=== PATIENT | female | born 1980 | race Caucasian/White ===

== ENCOUNTER 2021-04-21 13:16 | Outpatient (CLI) | payer BC, MEDICAID, SELFPAY ==
--- NOTE | 2021-04-21 13:30 | USCV_ITS ---
Rosalia Avelar Age: 41 Gender: F : 1980 Exam Date: 04/21/2021 13:55 Ordering Phys: Geraldo Segovia M.D ([email or web address]) Technologist: Rene Crespo Exam Location: [facility] [place] Indication: SOB BP: 136 / 80 HR: 62 Rhythm: Sinus Technical Quality: Adequate MEASUREMENTS (Male / Female) Normal Values 2D ECHO LV Diastolic Diameter PLAX 4.7 cm 4.2 - 5.9 / 3.9 - 5.3 cm LV Systolic Diameter PLAX 3.0 cm IVS Diastolic Thickness 0.6 cm 0.6 - 1.0 / 0.6 - 0.9 cm IVS Systolic Thickness 0.9 cm LVPW Diastolic Thickness 1.1 cm 0.6 - 1.0 / 0.6 - 0.9 cm LVPW Systolic Thickness 1.7 cm LVOT Diameter 2.0 cm LV Ejection Fraction 2D Teich 65.7 % LV Ejection Fraction MOD 2C 57.5 % LV Ejection Fraction 2C AL 56.2 % LA Diameter 3.1 cm LA Width 3.9 cm LA Height 4.7 cm RA Width 4.4 cm RA Height 5.0 cm Aorta at Sinotubular Diameter 2.2 cm DOPPLER AV Peak Velocity 147.0 cm/s LVOT Peak Velocity 111.0 cm/s AV Area Cont Eq vti 2.0 cm squared AV Area Cont Eq pk 2.3 cm squared MV Area PHT 4.5 cm squared Mitral E to A Ratio 0.9 MV E' Velocity 37.0 cm/s Mitral E to MV E' Ratio 4.9 Mitral E to LV E' Lateral Ratio 3.9 Mitral E to LV E' Septal Ratio 6.6 TR Peak Velocity 255.1 cm/s TR Peak Gradient 26.0 mmHg TR Mean Velocity 173.9 cm/s TR Mean Gradient 12.8 mmHg TR Velocity Time Integral 61.6 cm PV Peak Velocity 74.0 cm/s RV Acceleration Time 0.2 s RV Ejection Time 0.3 s RV AcT/ET 0.6 FINDINGS Left Ventricle Normal left ventricular size. LV systolic function is normal with EF of 55-60%. No regional wall motion abnormalities. Normal diastolic filling pattern. Right Ventricle The right ventricle is normal in size and function. Right Atrium The right atrium is normal in size. Left Atrium The left atrium is normal in size. Mitral Valve Structurally normal mitral valve without significant stenosis or prolapse. There is mild mitral regurgitation. Aortic Valve Structurally normal aortic valve without significant sclerosis or stenosis. There is trace aortic regurgitation. Tricuspid Valve Structurally normal tricuspid valve without significant stenosis. Mild tricuspid regurgitation. Insufficient TR jet to calculate RVSP Pulmonic Valve Structurally normal pulmonic valve without significant stenosis. There is mild pulmonic regurgitation. Pericardium Normal pericardium without effusion. Aorta Normal ascending aorta dimension. CONCLUSIONS LV systolic function is normal with EF of 55-60% Diatsolic function is normal Mild mitral regurgitation Trace aortic regurgitation Mild tricuspid regurgitation Mild pulmonic regurgitation No comparion studies are available Geraldo Segovia MD (Electronically Signed) Final Date: 26 April 2021 10:30 S
== END 2021-04-21 13:17 | disposition home or self-care (01) ==
LOC: US 13:17
PROVIDERS: PCP Family Medicine; Visit Provider Internal Medicine
DX: R06.02 Shortness of breath (principal); I08.3 Combined rheumatic disorders of mitral, aortic and tricuspid valves
CPT/HCPCS: 93306

== ENCOUNTER → 2021-05-04 15:25 | Outpatient (BNVA) | payer BC, MEDICAID, SELFPAY | PROVIDERS: PCP Family Medicine; Visit Provider Internal Medicine | DX: I50.9 Heart failure, unspecified (principal) | CPT/HCPCS: 80048; 83880 ==

== ENCOUNTER 2022-02-02 19:48 | Emergency (ER) | payer BC, MEDICAID, SELFPAY ==
[2022-02-02 19:59] VITALS: BP 122/78; PULSE 67; RESP 18; TEMP 36.5; O2SAT 97; BMI 20.9
--- NOTE | 2022-02-02 20:15 | XRR_ITS ---
PROCEDURE INFORMATION: Exam: XR Chest Exam date and time: 02/02/2022 8:33 PM Age: 41 years old Clinical indication: Shortness of breath; Additional info: SOB TECHNIQUE: Imaging protocol: Radiologic exam of the chest. Views: 1 view. COMPARISON: No relevant prior studies available. FINDINGS: Lungs: Unremarkable. No consolidation. Pleural spaces: Unremarkable. No pleural effusion. No pneumothorax. Heart/Mediastinum: Unremarkable. No cardiomegaly. Bones/joints: Unremarkable. XR/XR chest 1V portable [id number] IMPRESSION: No acute findings.
--- NOTE | 2022-02-02 20:17 | W.ED.SOB ---
HPI - SOB/Dyspnea General: Chief Complaint: Shortness of Breath/Dyspnea Stated Complaint: sob, heart racing Time Seen by Provider: 02/02/22 20:09 Source: patient Mode of arrival: ambulatory Limitations: no limitations History of Present Illness: HPI Narrative: Patient is a 41-year-old female has been having some shortness of breath since this morning. States that its actually improved since seem to be worse with some exertion she denies any fever denies any vomiting or diarrhea denies any chest pain. She has no leg swelling. No cough no fever. Associated symptoms: Deny abdominal pain, chest pain, fever(s), nausea or vomiting Review of Systems Const: Denies: fever(s), chills, body aches or change in appetite Eyes: Denies: blurry vision or eye discomfort ENMT: Denies: throat pain or dental pain Card: Denies: chest pain Resp: Reports: dyspnea GI: Denies: abdominal pain, nausea, vomiting or diarrhea : Denies: dysuria Musc: Denies: neck pain or back pain Skin/Breast: Denies: rash Neuro: Denies: headache(s) Psych: Denies: depression Dario/Lymph: Denies: easy bruising All/Imm: Denies: urticaria PFSH ED PFSH: Surgical History H/O dilation and curettage H/O neck surgery H/O: hysterectomy History of carpal tunnel surgery History of removal of ovarian cyst Hx of tonsillectomy Family History Grandmother Pacemaker Mother Murmur, cardiac Social History Smoking and tobacco status: current every day smoker Alcohol intake: never Physical Exam Const: COMMON NORMALS: no acute distress, patient oriented x3 and healthy appearing HENMT: COMMON NORMALS: normocephalic and atraumatic HEAD & SCALP: normocephalic and atraumatic Eye: COMMON NORMALS: Equal, round and reactive pupils present and EOMs intact bilaterally PUPIL: Yes Equal, round and reactive pupils present Neck/C-Spine: COMMON NORMALS: full ROM and supple Chest: COMMONS NORMALS: normal inspection of the chest and normal palpation of entire chest wall Resp: COMMON NORMALS: normal respiratory effort, No retractions, No use of accessory muscles and clear to auscultation bilaterally AUSCULTATION: clear to auscultation bilaterally Cardio: COMMON NORMALS: regular rate, regular rhythm and No murmurs present (Cardio) RATE: regular rate RHYTHM: regular rhythm GI: COMMON NORMALS: Normal to inspection, nondistended, normoactive bowel sounds present, Soft to palpation, non-tender and no masses PALPATION: Yes Soft to palpation Extremity: COMMON NORMALS: normal to inspection and full ROM Neuro: COMMON NORMALS: patient oriented x3, moves all extremities and no focal motor deficits Psych: COMMON NORMALS: mental status grossly normal, Normal thought process present and cooperative THOUGHT PROCESS: Normal thought process present Skin: COMMON NORMALS: no rashes or lesions noted and no wounds GENERAL SKIN EXAM: no rashes or lesions noted Course Vital Signs: Vital signs: Vital Signs Temperature 97.7 F 02/02/22 19:59 Pulse Rate 76 02/02/22 20:33 Respiratory Rate 16 02/02/22 20:33 Blood Pressure 110/67 02/02/22 20:33 Pulse Oximetry 96 02/02/22 20:33 Oxygen Delivery Me thod 02/02/22 20:33 MDM - SOB/Dyspnea Medical Decision Making Patient presents here with shortness of breath her blood work here is all normal besides some mild hypokalemia. Patient has a negative D-dimer no signs of cardiac cause no pneumonia she stable for discharge she is to follow-up with PCP and return if worsening. Lab Data : 02/02/22 20:26 02/02/22 20:26 Labs/Radiology: Radiology Impressions Chest X-Ray 02/02/22 20:15 IMPRESSION: No acute findings. Laboratory Results WBC 7.9 10^3/uL (4.0-10.0) 02/02/22 20:26 RBC 3.31 10^6/uL (4.1-5.3) L 02/02/22 20:26 Hgb 11.8 g/dL (11.5-15.3) 02/02/22 20:26 Hct 34.3 % (37.0-47.0) L 02/02/22 20:26 MCV 103.6 fl (81-99) H 02/02/22 20:26 MCH 35.6 pg (28.0-34.0) H 02/02/22 20: MCHC 34.4 g/dL (30.0-36.0) 02/02/22: RDW 12.7 % (12.1-15.1) 02/02/22 20: Plt Count 202 10^3/cmm (130-400) 02/02/22 20: MPV 12.2 fL (7.4-10.4) H 02/02/22 20: Neut % (Auto) 65.0 % 02/02/22: Lymph % (Auto) 29.0 % 02/02/22: [place] % (Auto) 4.3 % 02/02/22: Eos % (Auto) 0.6 % 02/02/22: Baso % (Auto) 0.8 % 02/02/22: Neut # (Auto) 5.10 10^3/uL (1.8-7.7) 02/02/22: Lymph # (Auto) 2.3 10^3/uL (0.8-4.8) 02/02/22: [place] # (Auto) 0.3 10^3/uL (0.2-0.9) 02/02/22: Eos # (Auto) 0.1 10^3/uL (0.0-0.8) 02/02/22: Baso # (Auto) 0.1 10^3/uL (0.0-0.1) 02/02/22: Nucleated RBC % (auto) 0 % 02/02/22: Nucleated RBCs # 0.0 /100WBC 02/02/22: PT 14.20 SECONDS (12.1-14.9) 02/02/22: INR 1.06 (0.8-1.2) 02/02/22: D-Dimer 0.31 ug/mIFEU (0-0.59) 02/02/22 20: Sodium 136 mmol/L (136-145) 02/02/22 20: Potassium 2.8 mmol/L (3.5-5.1) L* 02/02/22:26 Chloride 102 mmol/L (98-107) 02/02/22 20:26 Carbon Dioxide 22 mmol/L (22-29) 02/02/22 20:26 Anion Gap 14.8 (5-19) 02/02/22 20:26 BUN 5 mg/dL (6-20) L 02/02/22 20:26 Creatinine 0.7 mg/dL (0.5-0.9) 02/02/22 20:26 GFR Calculation 92.7 mL/min (90-130) 02/02/22 20:26 Glucose 111 mg/dL (65-115) 02/02/22 20:26 Calculated Osmolality 280 mOsm/kg (285-295) L 02/02/22 20:26 Calcium 8.9 mg/dL (8.5-10.5) 02/02/22 20:26 Total Bilirubin 0.4 mg/dL (0.15-1.2) 02/02/22 20:26 AST 10 U/L (0-32) 02/02/22 20:26 ALT < 5 U/L (0-33) 02/02/22 20:26 Alkaline Phosphatase 70 U/L (35-105) 02/02/22 20:26 Troponin T Baseline 6 ng/L (0-10) 02/02/22 20:26 NT-Pro-B Natriuret Pep 301 pg/mL (0-125) H 02/02/22 20:26 Total Protein 7.0 g/dL (6.6-8.7) 02/02/22 20:26 Albumin 4.5 g/dL (3.5-5.2) 02/02/22 20:26 Globulin 2.5 g/dL (1.3-4.6) 02/02/22 20:26 EKG Data EKG 1: I personally reviewed and interpreted this EKG as follows: EKG Interpretation Date: 02/02/22 EKG interpretation time: 20:23 Interpretation: nsr hr [address] or t wave abnormalities qrs 90 [id number] Discharge Plan Discharge Patient Disposition: Home Clinical Impression: Shortness of breath, Hypokalemia Condition: Stable Prescriptions: No Action docosanol [Abreva] 10 % cream topical ibuprofen [IBU] 800 mg tablet 800 mg PO TID methylprednisolone [Medrol] 4 mg tablet 4 mg PO DAILY albuterol sulfate [ProAir HFA] 90 mcg/actuation HFA aerosol inhaler 2 puff inhalation Q6H PRN diclofenac sodium 1 % gel 2 g topical QID Rx Instructions: apply to single elbow, wrist or hand; for hand includes palm/fingers/back of hand alprazolam [Xanax] 1 mg tablet 1 mg PO BID PRN buprenorphine-naloxone [Suboxone] 2-0.5 mg film 1 film buccal TID Rx Instructions: place 1 strip/tab under (each) side of tongue omeprazole 20 mg capsule,delayed release(DR/EC) 20 mg PO DAILY bumetanide 2 mg tablet 2 mg PO DAILY Discharge Orders: Discharge ED (Routine); Ordered 02/02/22 Ordered By: Harrison Garcia Referrals: Jewel Oneil MD [Primary Care Provider] - 1-3 days Discharge Diet: Advance as tolerated Discharge Activity: Resume usual activity Patient Instructions: Hypokalemia (ED) Coding Level of Care Code ED Television Installer Helper for Chg Fwd Exam Comprehensive
[2022-02-02 20:33] VITALS: BP 110/67; PULSE 76; RESP 16; O2SAT 96
[2022-02-02 20:33] LABS: Basophils # 0.1 10^3/uL (0.0-0.1); Basophils % 0.8 %; Eosinophils # 0.1 10^3/uL (0.0-0.8); Eosinophils % 0.6 %; Hematocrit 34.3 % (37.0-47.0); Hemoglobin 11.8 g/dL (11.5-15.3); Lymphocytes # 2.3 10^3/uL (0.8-4.8); Mean Corpuscular HGB Conc 34.4 g/dL (30.0-36.0); Mean Corpuscular Hemoglobin 35.6 pg (28.0-34.0); Mean Corpuscular Volume 103.6 fl (81-99); Mean Platelet Volume 12.2 fL (7.4-10.4); Monocytes # 0.3 10^3/uL (0.2-0.9); Monocytes % 4.3 %; Nucleated Red Blood Cells % 0 %; Platelet Count 202 10^3/cmm (130-400); Red Blood Count 3.31 10^6/uL (4.1-5.3); Red Cell Distribution Width 12.7 % (12.1-15.1); White Blood Count 7.9 10^3/uL (4.0-10.0)
[2022-02-02 20:45] LABS: INR 1.06 (0.8-1.2)
[2022-02-02 20:48] LABS: D Dimer 0.31 ug/mIFEU (0-0.59)
[2022-02-02 21:00] LABS: Troponin(5th) Baseline 6 ng/L (0-10)
[2022-02-02 21:08] LABS: Alanine Aminotransferase < 5 U/L (0-33); Albumin Level 4.5 g/dL (3.5-5.2); Alkaline Phosphatase 70 U/L (35-105); Anion Gap 14.8 (5-19); Aspartate Amino Transferase 10 U/L (0-32); Blood Urea Nitrogen 5 mg/dL (6-20); Calcium 8.9 mg/dL (8.5-10.5); Carbon Dioxide 22 mmol/L (22-29); Chloride 102 mmol/L (98-107); Globulin 2.5 g/dL (1.3-4.6); Glomerular Filtration Rate 92.7 mL/min (90-130); Glucose 111 mg/dL (65-115); NT Pro B Type Natriuretic Pept 301 pg/mL (0-125); Osmolality Calculated 280 mOsm/kg (285-295); Sodium 136 mmol/L (136-145); Total Bilirubin 0.4 mg/dL (0.15-1.2)
[2022-02-02 21:23] LABS: Potassium 2.8 mmol/L (3.5-5.1)
[2022-02-02] MEDS: potassium chloride ER 20 mEq Tablet 40 MEQ PO (21:39)
[2022-02-02 22:03] VITALS: BP 106/73; PULSE 80; RESP 15
[2022-02-02 22:10] VITALS: BP 106/73; PULSE 80; RESP 15
== END 2022-02-02 22:11 | disposition home or self-care (01) ==
PROVIDERS: Emergency Provider Emergency Medicine; PCP Family Medicine
DX: R06.02 Shortness of breath (principal); E87.6 Hypokalemia; F17.210 Nicotine dependence, cigarettes, uncomplicated
CPT/HCPCS: 71045; 80053; 83880; 84484; 85025; 85378; 85610; 99285

== ENCOUNTER → 2024-04-18 15:46 | Outpatient (BNVA) | payer BC, MEDICAID, SELFPAY | PROVIDERS: PCP Family Medicine; Visit Provider Obstetrics & Gynecology | DX: Z01.419 Encounter for gynecological examination (general) (routine) without abnormal findings (principal) | CPT/HCPCS: 87624 ==

== ENCOUNTER → 2024-06-17 08:31 | Outpatient (BNVA) | payer BC, MEDICAID, SELFPAY | PROVIDERS: PCP Family Medicine; Visit Provider Obstetrics & Gynecology | DX: N83.292 Other ovarian cyst, left side (principal); Z98.890 Other specified postprocedural states | CPT/HCPCS: 76830 ==

== ENCOUNTER 2025-01-16 14:12 | Emergency (ER) | payer OTHER, BC, MEDICAID, SELFPAY ==
[2025-01-16] VITALS (7 sets, daily range): BP systolic 95–108; BP diastolic 57–78; PULSE 63–95; RESP 14–19; TEMP 36.7; O2SAT 93–98; BMI 19.7
--- OUTSIDE RECORDS SUMMARY | 2025-01-16 14:24 | XMS_ITS | Clinical Summary ---
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 Immunizations Immunization Administration Dates Next Due Influenza Seasonal Unspecified Formulation IM Rubella Vaccine SQ 01/11/2006,12/26/2002 Family History Medical History Relation Name Comments Breast Cancer Neg Hx Ovarian Cancer Neg Hx Social History Tobacco Use Types Packs/Day Years Used Date Smoking Tobacco: Every Day Cigarettes Smokeless Tobacco: Never Comments:Quit smoking: I'm quitting Has cut use from 1 PPD to < 1/2 PPD Alcohol Use Standard Drinks/Week Comments No 0 (1 standard drink = 0.6 oz pur e alcohol) Comments Unknown Sex and Gender Information Value Date Recorded Sex Assigned at Not on file Legal Sex Female 9:26 PM CDT Gender Identity Not on file Sexual Orientation Not on file Last Filed Vital Signs Vital Sign Reading Time Taken Comments Blood Pressure 126/62 03/03/2021 6:38 PM CDT Pulse 60 03/03/2021 6:38 PM CDT Temperature 36.8 C (98.3 F) 03/03/2021 6:38 PM CDT Respiratory Rate 14 03/03/2021 6:38 PM CDT Oxygen Saturation 100% 03/03/2021 6:38 PM CDT Inhaled Oxygen Concentration - - Weight 68 kg (150 lb) 03/03/2021 6:38 PM CDT Height 170.2 cm (5' 7 ) 03/30/2017 1:44 PM CDT Body Mass Index 23.49 03/30/2017 1:44 PM CDT Plan of Treatment Health Maintenance Due Date Last Done Comments HPV VACCINES (1 - 3-dose series) 1996 DTAP/TDAP/TD VACCINES (1 - Tdap) 2000 HEPATITIS B VACCINES (1 of 3 - 19+ 3-dose series) 2000 HPV/Cotest (21-29) 2002 CERVICAL CANCER SCREENING 2011 HPV/Cotest (30-65) 2011 PAP SMEAR 2011 BREAST CANCER SCREENING 2021 03/30/2017, 03/30 INFLUENZA VACCINE (#1) 2025 06/15/2007 Procedures Procedure Name Priority Date/Time Associated Diagnosis Comments MAMMO DIAGNOSTIC BILATERAL W OR WO CAD Routine 03/30/2017 10:32 AM CDT Lump or mass in breast from Last 3 Months or Most Recently Relevant to Health Maintenance Results * MAMMO DIAGNOSTIC BILATERAL W OR WO CAD (03/30/2017 10:32 AM CDT) Anatomical Region Laterality Modality Breast Bilateral Other Impressions 03/30/2017 3:18 PM CDT : Mammogram appears unremarkable as noted. Special attention was paid to the upper outer quadrant on each side, the location of historical palpable abnormalities noted by her physician at recent clinical breast examination. These areas appear unremarkable on mammogram and show dense fibrocystic tissue suggested on ultrasound, and therefore will have to be correlated clinically. From an imaging standpoint, I would recommend routine age-specific screening mammograms beginning at age 40. The patient was given a result/recommendation letter. [id number] Narrative 03/30/2017 3:18 PM CDT Bilateral Digital Diagnostic Mammogram And Bilateral Breast Ultrasound: Initial mammogram on this 36-year-old female is presented, therefore there are no previous for comparison. She presents with history of palpable lumps upper outer on each side, noted by her physician. Patient gives history that she has not noticed any palpable abnormalities. We have office notes and diagram from her physician visit. Breast tissue is dense and asymmetrical. No area of suspicion on either side is seen, with special attention to the upper outer quadrants. Ultrasound was performed of the upper outer aspects of each breast, because of the history of palpable abnormalities there noted by her physician. The 2 sides appear symmetrical and essentially identical. There is dense tissue and suggested fibrocystic changes bilaterally. No mass is seen, solid or cystic. This digital mammogram was also analyzed by the Computer Aided Detection System (CAD), R2 ImageChecker, Version 8.3. Procedure Note Phu King MD - 07/29/2021 Bilateral Digital Diagnostic Mammogram And Bilateral Breast Ultrasound: Initial mammogram on this 36-year-old female is presented, therefore there are no previous for comparison. She presents with history of palpable lumps upper outer on each side, noted by her physician. Patient gives history that she has not noticed any palpable abnormalities. We have office notes and diagram from her physician visit. Breast tissue is dense and asymmetrical. No area of suspicion on either side is seen, with special attention to the upper outer quadrants. Ultrasound was performed of the upper outer aspects of each breast, because of the history of palpable abnormalities there noted by her physician. The 2 sides appear symmetrical and essentially identical. There is dense tissue and suggested fibrocystic changes bilaterally. No mass is seen, solid or cystic. This digital mammogram was also analyzed by the Computer Aided Detection System (CAD), R2 ImageChecker, Version 8.3. IMPRESSION : Mammogram appears unremarkable as noted. Special attention was paid to the upper outer quadrant on each side, the location of historical palpable abnormalities noted by her physician at recent clinical breast examination. These areas appear unremarkable on mammogram and show dense fibrocystic tissue suggested on ultrasound, and therefore will have to be correlated clinically. From an imaging standpoint, I would recommend routine age-specific screening mammograms beginning at age 40. The patient was given a result/recommendation letter. [id number] us Anish Simms MD MAMMO ORDERABLES Final Result from Last 3 Months or Most Recently Relevant to Health Maintenance Insurance [facility] MEDICAID Care Teams Newspaper Inserter Relationship Specialty Start Date End Date Jamila Powell FNP [address] [place] [id number] PCP - General NURSE PRACTITIONER 06/25/13
[2025-01-16 15:29] LABS: Hematocrit 31.4 % (36-47); Hemoglobin 10.70 g/dL (11.27-16.99); Mean Corpuscular HGB Conc 34.1 g/dL (30-55); Mean Corpuscular Hemoglobin 36.9 pg (27-33); Mean Corpuscular Volume 108.3 fl (85-98); Nucleated Red Blood Cells % 0 %; Platelet Count 234 10^3/cmm (157-399); Red Blood Count 2.90 10^6/uL (3.85-5.65); White Blood Count 6.12 10^3/uL (3.29-11.43)
[2025-01-16 15:50] LABS: Alanine Aminotransferase 6 U/L (0-33); Albumin Level 4.1 g/dL (3.5-5.2); Alkaline Phosphatase 82 U/L (35-105); Anion Gap 14.6 (5-19); Aspartate Amino Transferase 14 U/L (0-32); Blood Urea Nitrogen 9 mg/dL (6-20); Calcium 8.2 mg/dL (8.5-10.5); Carbon Dioxide 20 mmol/L (22-29); Chloride 109 mmol/L (98-107); Creatinine Clr Calc Pharmacy 82.6149; Globulin 2.7 g/dL (1.3-4.6); Glucose 111 mg/dL (65-115); Lipase 28 U/L (13-60); Osmolality Calculated 289 mOsm/kg (285-295); Potassium 3.6 mmol/L (3.5-5.1); Sodium 140 mmol/L (136-145); Total Protein 6.8 g/dL (6.6-8.7)
[2025-01-16 16:07] LABS: Slide Review Slide Review Perform
--- NOTE | 2025-01-16 17:33 | W.ED.GENADLT ---
Documented by User: Winston Iverson DO 01/21/25 14:05 HPI - General Adult General: Chief complaint: Nausea/Vomiting/Diarrhea Stated complaint: Low BP double vison N/V SOB Dizzy Time Seen by Provider: 01/16/25 17:09 History of Present Illness: 44-year-old female who presents to the emergency room with complaints of episodes of orthostasis she states she has low blood pressure and she is up and active she is short of breath and dizzy at times. She has had systolic blood pressures while at work in the 80s and 70s. Patient is on ibuprofen on. She has had 2 or 3 episodes of emesis today. This been going on for approximately 1 week. No head trauma no falls. Patient reports she has a history of congestive heart failure however she is has an ejection fraction of 55 to 60% according to the only echocardiogram on the chart which was done in April 2021. Normal valvular structure. Associated symptoms: Reports dyspnea; Deny chest pain or rash Related Data Home Medications ?Medication ?Instructions ?Recorded ?Confirmed alprazolam 1 mg tablet (Xanax) 1 mg PO BID PRN 03/23/21 07/12/24 buprenorphine 2 mg-naloxone 0.5 mg 1 film buccal TID 03/23/21 07/12/24 sublingual film (Suboxone) docosanol 10 % topical cream applic topical 03/23/21 07/12/24 (Abreva) ibuprofen 800 mg tablet (IBU) 800 mg PO TID 03/23/21 07/12/24 omeprazole 20 mg capsule,delayed 20 mg PO DAILY 03/23/21 07/12/24 release Previous Rx's ?Medication ?Instructions ?Recorded albuterol sulfate 90 mcg/actuation 2 puff inhalation Q6H PRN wheezing 08/25/23 aerosol inhaler (ProAir HFA) #8.5 grams benzonatate 100 mg capsule 100 mg PO TID PRN cough #30 caps 07/12/24 levofloxacin 750 mg tablet 750 mg PO DAILY #7 tabs 07/12/24 Allergies Allergy/AdvReac Type Severity Reaction Status Date / Time azithromycin Allergy Unknown Unknown Verified 01/16/25 14:18 morphine Allergy Unknown Unknown Verified 01/16/25 14:18 prednisone Allergy Unknown Unknown Verified 01/16/25 14:18 tramadol Allergy Unknown Unknown Verified 01/16/25 14:18 Review of Systems Const: Denies: fever(s) or chills Card: Denies: chest pain Resp: Reports: dyspnea GI: Denies: abdominal pain : Denies: dysuria, urinary frequency or urinary urgency Musc: Denies: neck pain or back pain Skin/Breast: Denies: rash PFSH ED PFSH: Surgical History Hx of tonsillectomy H/O dilation and curettage H/O neck surgery H/O: hysterectomy History of removal of ovarian cyst History of carpal tunnel surgery Family History Grandmother Postsurgical cardiac pacemaker in situ Mother Murmur, cardiac Ovarian cancer Father Heart disease Denies family history of Colon cancer Diabetes Breast cancer Hypertension Uterine cancer Thyroid disease Stroke Social History Smoking and tobacco/nicotine status: current every day tobacco/nicotine user (.5 ppd) Alcohol intake: never Substance/Drug Use: never Physical Exam Const: COMMON NORMALS: no acute distress GENERAL APPEARANCE: cooperative and comfortable ORIENTATION/CONSCIOUSNESS: Yes awake, Yes oriented to person, Yes oriented to place and Yes oriented to time HENMT: COMMON NORMALS: normocephalic, atraumatic and hearing grossly normal bilaterally HEAD & SCALP: normocephalic and atraumatic Resp: COMMON NORMALS: normal respiratory effort, No retractions, No use of accessory muscles and clear to auscultation bilaterally AUSCULTATION: clear to auscultation bilaterally Cardio: COMMON NORMALS: regular rate, regular rhythm and No murmurs present (Cardio) RATE: regular rate RHYTHM: regular rhythm GI: COMMON NORMALS: Soft to palpation and No hepatosplenomegaly present AUSCULTATION: Yes normoactive bowel sounds PALPATION: Yes Soft to palpation, No Tenderness to palpation present (GI), No Guarding due to palpation present (GI) and Yes No hepatosplenomegaly present Extremity: COMMON NORMALS: normal to inspection, capillary refill normal, no clubbing, cyanosis or edema, no calf tenderness and no pedal edema Neuro: SENSORIUM/ORIENTATION: Yes oriented to person, Yes oriented to place and Yes oriented to time Skin: COMMON NORMALS: no rashes or lesions noted GENERAL SKIN EXAM: no rashes or lesions noted Course Vital Signs: Vital signs: Vital Signs Temperature 98.0 F 01/16/25 14:16 Pulse Rate 66 01/16/25 22:09 Respiratory Rate 15 01/16/25 22:09 Blood Pressure 107/64 01/16/25 22:09 Pulse Oximetry 96 01/16/25 22:09 Oxygen Delivery Me thod Room Air 01/16/25 20:00 MDM - General Adult Medical Decision Making Care signed out to Dr. Sandoval at change of shift. See final notes for diagnosis and disposition. Lab Data 01/16/25 15:05 01/16/25 15:05 Laboratory Results WBC 6.12 10^3/uL (3.29-11.43) 01/16/25 15:05 RBC 2.90 10^6/uL (3.85-5.65) L 01/16/25 15:05 Hgb 10.70 g/dL (11.27-16.99) L 01/16/25 15:05 Hct 31.4 % (36-47) L 01/16/25 15:05 MCV 108.3 fl (85-98) H 01/16/25 15:05 MCH 36.9 pg (27-33) H 01/16/25 15:05 MCHC 34.1 g/dL (30-55) 01/16/25 15:05 RDW 17.2 % (12.1-15.1) H 01/16/25 15:05 Plt Count 234 10^3/cmm (157-399) 01/16/25 15:05 MPV 11.2 fL (7.4-10.4) H 01/16/25 15:05 Neut % (Auto) 54.7 % 01/16/25 15:05 Lymph % (Auto) 35.6 % 01/16/25 15:05 [place] % (Auto) 5.9 % 01/16/25 15:05 Eos % (Auto) 2.5 % 01/16/25 15:05 Baso % (Auto) 1.1 % 01/16/25 15:05 Neut # (Auto) 3.35 10^3/uL (1.8-7.7) 01/16/25 15:05 Lymph # (Auto) 2.2 10^3/uL (0.8-4.8) 01/16/25 15:05 [place] # (Auto) 0.4 10^3/uL (0.2-0.9) 01/16/25 15:05 Eos # (Auto) 0.2 10^3/uL (0.0-0.8) 01/16/25 15:05 Baso # (Auto) 0.1 10^3/uL (0.0-0.1) 01/16/25 15:05 Nucleated RBC % (auto) 0 % 01/16/25 15:05 Nucleated RBCs # 0.0 /100WBC 01/16/25 15:05 Sodium 140 mmol/L (136-145) 01/16/25 15:05 Potassium 3.6 mmol/L (3.5-5.1) 01/16/25 15:05 Chloride 109 mmol/L (98-107) H 01/16/25 15:05 Carbon Dioxide 20 mmol/L (22-29) L 01/16/25 15:05 Anion Gap 14.6 (5-19) 01/16/25 15:05 BUN 9 mg/dL (6-20) 01/16/25 15:05 Creatinine 0.8 mg/dL (0.5-0.9) 01/16/25 15:05 GFR Calculation 78.3 mL/min (90-130) L 01/16/25 15:05 Glucose 111 mg/dL (65-115) 01/16/25 15:05 Calculated Osmolality 289 mOsm/kg (285-295) 01/16/25 15:05 Calcium 8.2 mg/dL (8.5-10.5) L 01/16/25 15:05 Total Bilirubin 0.2 mg/dL (0.15-1.2) 01/16/25 15:05 AST 14 U/L (0-32) 01/16/25 15:05 ALT 6 U/L (0-33) 01/16/25 15:05 Alkaline Phosphatase 82 U/L (35-105) 01/16/25 15:05 Troponin T Baseline < 6 ng/L (0-10) 01/16/25 19:58 NT-Pro-B Natriuret Pep 102 pg/mL (0-125) 01/16/25 15:15 Total Protein 6.8 g/dL (6.6-8.7) 01/16/25 15:05 Albumin 4.1 g/dL (3.5-5.2) 01/16/25 15:05 Globulin 2.7 g/dL (1.3-4.6) 01/16/25 15:05 Lipase 28 U/L (13-60) 01/16/25 15:05 Urine Color Yellow (Yellow) 01/16/25 17:35 Urine Appearance Cloudy (CLEAR) A 01/16/25 17:35 Urine pH 6.5 (5-7) 01/16/25 17:35 Ur Specific [place] 1.012 (1.005-1.030) 01/16/25 17:35 Urine Protein 1+ (Negative) A 01/16/25 17:35 Urine Glucose (UA) Negative (Normal) 01/16/25 17:35 Urine Ketones Negative (Negative) 01/16/25 17:35 Urine Blood Negative (Negative) 01/16/25 17:35 Urine Nitrate Positive (Negative) A 01/16/25 17:35 Urine Bilirubin Negative (Negative) 01/16/25 17:35 Urine Urobilinogen 1.0 mg/dL (Negative) 01/16/25 17:35 Ur Leukocyte Esterase Negative (Negative) 01/16/25 17:35 Urine RBC 0-4 /hpf (0-2) H 01/16/25 17:35 Urine WBC 5-10 /hpf (0-5) H 01/16/25 17:35 Ur Squamous Epith Cells 5-10 /hpf (0-5) H 01/16/25 17:35 Amorphous Sediment Not Reportable 01/16/25 17:35 Urine Bacteria 3+ /hpf (NONE) H 01/16/25 17:35 Urine Mucus Trace /hpf 01/16/25 17:35 Discharge Plan Discharge Patient Disposition: Home Clinical Impression: Near syncope, UTI (urinary tract infection) Condition: Stable Prescriptions: No Action docosanol [Abreva] 10 % cream topical ibuprofen [IBU] 800 mg tablet 800 mg PO TID alprazolam [Xanax] 1 mg tablet 1 mg PO BID PRN buprenorphine-naloxone [Suboxone] 2-0.5 mg film 1 film buccal TID Rx Instructions: place 1 strip/tab under (each) side of tongue omeprazole 20 mg capsule,delayed release(DR/EC) 20 mg PO DAILY albuterol sulfate [ProAir HFA] 90 mcg/actuation HFA aerosol inhaler 2 puff inhalation Q6H PRN (Reason: wheezing) Qty: 8.5 2RF levofloxacin 750 mg tablet 750 mg PO DAILY Qty: 7 0RF benzonatate 100 mg capsule 100 mg PO TID PRN (Reason: cough) Qty: 30 0RF Discharge Orders: Discharge ED (Routine); Ordered 01/16/25 Ordered By: Michi Sandoval Referrals: Jewel Oneil MD [Primary Care Provider, [facility]] Discharge Diet: Advance as tolerated Discharge Activity: Increase activity as tolerated Patient Instructions: Urinary Tract Infection in Women (ED), Lightheadedness (ED), Patient Portal & Baljinder Instructions Print Language: British Coding Level of Care Code ED Molding Utility Worker for Chg Fwd Documented by User: Michi Sandoval MD 01/16/25 22:54 HPI - General Adult General: Chief complaint: Nausea/Vomiting/Diarrhea Stated complaint: Low BP double vison N/V SOB Dizzy Time Seen by Provider: 01/16/25 17:09 Related Data Home Medications ?Medication ?Instructions ?Recorded ?Confirmed alprazolam 1 mg tablet (Xanax) 1 mg PO BID PRN 03/23/21 07/12/24 buprenorphine 2 mg-naloxone 0.5 mg 1 film buccal TID 03/23/21 07/12/24 sublingual film (Suboxone) docosanol 10 % topical cream applic topical 03/23/21 07/12/24 (Abreva) ibuprofen 800 mg tablet (IBU) 800 mg PO TID 03/23/21 07/12/24 omeprazole 20 mg capsule,delayed 20 mg PO DAILY 03/23/21 07/12/24 release Previous Rx's ?Medication ?Instructions ?Recorded albuterol sulfate 90 mcg/actuation 2 puff inhalation Q6H PRN wheezing 08/25/23 aerosol inhaler (ProAir HFA) #8.5 grams benzonatate 100 mg capsule 100 mg PO TID PRN cough #30 caps 07/12/24 levofloxacin 750 mg tablet 750 mg PO DAILY #7 tabs 07/12/24 Allergies Allergy/AdvReac Type Severity Reaction Status Date / Time azithromycin Allergy Unknown Unknown Verified 01/16/25 14:18 morphine Allergy Unknown Unknown Verified 01/16/25 14:18 prednisone Allergy Unknown Unknown Verified 01/16/25 14:18 tramadol Allergy Unknown Unknown Verified 01/16/25 14:18 PFSH ED PFSH: Surgical History Hx of tonsillectomy H/O dilation and curettage H/O neck surgery H/O: hysterectomy History of removal of ovarian cyst History of carpal tunnel surgery Family History Grandmother Postsurgical cardiac pacemaker in situ Mother Murmur, cardiac Ovarian cancer Father Heart disease Denies family history of Colon cancer Diabetes Breast cancer Hypertension Uterine cancer Thyroid disease Stroke Social History Smoking and tobacco/nicotine status: current every day tobacco/nicotine user (.5 ppd) Alcohol intake: never Substance/Drug Use: never Course Vital Signs: Vital signs: Vital Signs Temperature 98.0 F 01/16/25 14:16 Pulse Rate 66 01/16/25 22:09 Respiratory Rate 15 01/16/25 22:09 Blood Pressure 107/64 01/16/25 22:09 Pulse Oximetry 96 01/16/25 22:09 Oxygen Delivery Me thod Room Air 01/16/25 20:00 MDM - General Adult Medical Decision Making Care signed out to Dr. Sandoval at change of shift. See final notes for diagnosis and disposition. Blood pressure remains relatively soft but mean arterial pressure is 70 1:05 liter of IV fluid. 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 She sweats all day. I believe there is a dehydration component to her symptoms. She was concerned about CHF, however BNP is normal and EKG and troponin are reassuring. Urinalysis is concerning for infection. Culture will be sent and she will be started on nitrofurantoin. She has next 3 days off work and will try to hydrate well and follow-up with primary care. I do not suspect any other emergent process warranting further workup in the hospital at this time. She shows good understanding and agrees to the plan Lab Data 01/16/25 15:05 01/16/25 15:05 Laboratory Results WBC 6.12 10^3/uL (3.29-11.43) 01/16/25 15:05 RBC 2.90 10^6/uL (3.85-5.65) L 01/16/25 15:05 Hgb 10.70 g/dL (11.27-16.99) L 01/16/25 15:05 Hct 31.4 % (36-47) L 01/16/25 15:05 MCV 108.3 fl (85-98) H 01/16/25 15:05 MCH 36.9 pg (27-33) H 01/16/25 15:05 MCHC 34.1 g/dL (30-55) 01/16/25 15:05 RDW 17.2 % (12.1-15.1) H 01/16/25 15:05 Plt Count 234 10^3/cmm (157-399) 01/16/25 15:05 MPV 11.2 fL (7.4-10.4) H 01/16/25 15:05 Neut % (Auto) 54.7 % 01/16/25 15:05 Lymph % (Auto) 35.6 % 01/16/25 15:05 [place] % (Auto) 5.9 % 01/16/25 15:05 Eos % (Auto) 2.5 % 01/16/25 15:05 Baso % (Auto) 1.1 % 01/16/25 15:05 Neut # (Auto) 3.35 10^3/uL (1.8-7.7) 01/16/25 15:05 Lymph # (Auto) 2.2 10^3/uL (0.8-4.8) 01/16/25 15:05 [place] # (Auto) 0.4 10^3/uL (0.2-0.9) 01/16/25 15:05 Eos # (Auto) 0.2 10^3/uL (0.0-0.8) 01/16/25 15:05 Baso # (Auto) 0.1 10^3/uL (0.0-0.1) 01/16/25 15:05 Nucleated RBC % (auto) 0 % 01/16/25 15:05 Nucleated RBCs # 0.0 /100WBC 01/16/25 15:05 Sodium 140 mmol/L (136-145) 01/16/25 15:05 Potassium 3.6 mmol/L (3.5-5.1) 01/16/25 15:05 Chloride 109 mmol/L (98-107) H 01/16/25 15:05 Carbon Dioxide 20 mmol/L (22-29) L 01/16/25 15:05 Anion Gap 14.6 (5-19) 01/16/25 15:05 BUN 9 mg/dL (6-20) 01/16/25 15:05 Creatinine 0.8 mg/dL (0.5-0.9) 01/16/25 15:05 GFR Calculation 78.3 mL/min (90-130) L 01/16/25 15:05 Glucose 111 mg/dL (65-115) 01/16/25 15:05 Calculated Osmolality 289 mOsm/kg (285-295) 01/16/25 15:05 Calcium 8.2 mg/dL (8.5-10.5) L 01/16/25 15:05 Total Bilirubin 0.2 mg/dL (0.15-1.2) 01/16/25 15:05 AST 14 U/L (0-32) 01/16/25 15:05 ALT 6 U/L (0-33) 01/16/25 15:05 Alkaline Phosphatase 82 U/L (35-105) 01/16/25 15:05 Troponin T Baseline < 6 ng/L (0-10) 01/16/25 19:58 NT-Pro-B Natriuret Pep 102 pg/mL (0-125) 01/16/25 15:15 Total Protein 6.8 g/dL (6.6-8.7) 01/16/25 15:05 Albumin 4.1 g/dL (3.5-5.2) 01/16/25 15:05 Globulin 2.7 g/dL (1.3-4.6) 01/16/25 15:05 Lipase 28 U/L (13-60) 01/16/25 15:05 Urine Color Yellow (Yellow) 01/16/25 17:35 Urine Appearance Cloudy (CLEAR) A 01/16/25 17:35 Urine pH 6.5 (5-7) 01/16/25 17:35 Ur Specific [place] 1.012 (1.005-1.030) 01/16/25 17:35 Urine Protein 1+ (Negative) A 01/16/25 17:35 Urine Glucose (UA) Negative (Normal) 01/16/25 17:35 Urine Ketones Negative (Negative) 01/16/25 17:35 Urine Blood Negative (Negative) 01/16/25 17:35 Urine Nitrate Positive (Negative) A 01/16/25 17: Urine Bilirubin Negative (Negative) 01/16/25 17:35 Urine Urobilinogen 1.0 mg/dL (Negative) 01/16/25 17:35 Ur Leukocyte Esterase Negative (Negative) 01/16/25 17:35 Urine RBC 0-4 /hpf (0-2) H 01/16/25 17:35 Urine WBC 5-10 /hpf (0-5) H 01/16/25 17:35 Ur Squamous Epith Cells 5-10 /hpf (0-5) H 01/16/25 17:35 Amorphous Sediment Not Reportable 01/16/25 17:35 Urine Bacteria 3+ /hpf (NONE) H 01/16/25 17:35 Urine Mucus Trace /hpf 01/16/25 17:35 All radiology interpretation(s) finalized by discharge EKG Data EKG 1: Interpretation: Time?2034?sinus rhythm, rate of 60, no ST segment elevation or depression, no T wave inversions, QTc = 412 Discharge Plan Discharge Patient Disposition: Home Clinical Impression: Near syncope, UTI (urinary tract infection) Condition: Stable Prescriptions: No Action docosanol [Abreva] 10 % cream topical ibuprofen [IBU] 800 mg tablet 800 mg PO TID alprazolam [Xanax] 1 mg tablet 1 mg PO BID PRN buprenorphine-naloxone [Suboxone] 2-0.5 mg film 1 film buccal TID Rx Instructions: place 1 strip/tab under (each) side of tongue omeprazole 20 mg capsule,delayed release(DR/EC) 20 mg PO DAILY albuterol sulfate [ProAir HFA] 90 mcg/actuation HFA aerosol inhaler 2 puff inhalation Q6H PRN (Reason: wheezing) Qty: 8.5 2RF levofloxacin 750 mg tablet 750 mg PO DAILY Qty: 7 0RF benzonatate 100 mg capsule 100 mg PO TID PRN (Reason: cough) Qty: 30 0RF Discharge Orders: Discharge ED (Routine); Ordered 01/16/25 Ordered By: Michi Sandoval Referrals: Jewel Oneil MD [Primary Care Provider, [facility]] Discharge Diet: Advance as tolerated Discharge Activity: Increase activity as tolerated Patient Instructions: Urinary Tract Infection in Women (ED), Lightheadedness (ED), Patient Portal & Baljinder Instructions Print Language: British Coding Level of Care Code ED Molding Utility Worker for Emilee Palmer
[2025-01-16 17:53] LABS: Glucose Urine UA Negative (Normal); Nitrate Urine Positive (Negative); Specific Gravity, Urine 1.012 (1.005-1.030)
[2025-01-16 17:57] LABS: Add Urine Microscopic? YES
--- NOTE | 2025-01-16 19:52 | W.ED.WEAKNES ---
HPI - Weakness General: Chief complaint: Nausea/Vomiting/Diarrhea Stated complaint: Low BP double vison N/V SOB Dizzy Time Seen by Provider: 01/16/25 17:09 History of Present Illness: Patient is a generally well-appearing 44-year-old female seen for several days of lightheadedness, intermittent visual disturbance, intermittent confusion, with documented blood pressures at home of 80/40 and 70/30 when having symptoms. She states that she has unintentionally lost roughly 25 pounds over the last few months. She states that she has a poor appetite and does not want to eat. She endorses some mild nausea but no vomiting. She denies fever, cough, chest pain, shortness of breath, dysuria, frequency associated the symptoms. She states that she has a history of congestive heart failure for which she sometimes takes diuretic medication. She does not take blood pressure medication. She can however the name of the medication she supposed to take for her congestive heart failure nor does she know her ejection fraction though she states her last echocardiogram was performed in [facility] from [facility] roughly 1 year ago. Related Data Home Medications ?Medication ?Instructions ?Recorded ?Confirmed alprazolam 1 mg tablet (Xanax) 1 mg PO BID PRN 03/23/21 07/12/24 buprenorphine 2 mg-naloxone 0.5 mg 1 film buccal TID 03/23/21 07/12/24 sublingual film (Suboxone) docosanol 10 % topical cream applic topical 03/23/21 07/12/24 (Abreva) ibuprofen 800 mg tablet (IBU) 800 mg PO TID 03/23/21 07/12/24 omeprazole 20 mg capsule,delayed 20 mg PO DAILY 03/23/21 07/12/24 release Previous Rx's ?Medication ?Instructions ?Recorded albuterol sulfate 90 mcg/actuation 2 puff inhalation Q6H PRN wheezing 08/25/23 aerosol inhaler (ProAir HFA) #8.5 grams benzonatate 100 mg capsule 100 mg PO TID PRN cough #30 caps 07/12/24 levofloxacin 750 mg tablet 750 mg PO DAILY #7 tabs 07/12/24 Allergies Allergy/AdvReac Type Severity Reaction Status Date / Time azithromycin Allergy Unknown Unknown Verified 01/16/25 14:18 morphine Allergy Unknown Unknown Verified 01/16/25 14:18 prednisone Allergy Unknown Unknown Verified 01/16/25 14:18 tramadol Allergy Unknown Unknown Verified 01/16/25 14:18 PFSH ED PFSH: Surgical History Hx of tonsillectomy H/O dilation and curettage H/O neck surgery H/O: hysterectomy History of removal of ovarian cyst History of carpal tunnel surgery Family History Grandmother Postsurgical cardiac pacemaker in situ Mother Murmur, cardiac Ovarian cancer Father Heart disease Denies family history of Colon cancer Diabetes Breast cancer Hypertension Uterine cancer Thyroid disease Stroke Social History Smoking and tobacco/nicotine status: current every day tobacco/nicotine user (.5 ppd) Alcohol intake: never Substance/Drug Use: never Physical Exam Const: COMMON NORMALS: no acute distress, patient oriented x3 and alert HENMT: COMMON NORMALS: normocephalic and atraumatic HEAD & SCALP: normocephalic and atraumatic Eye: COMMON NORMALS: Equal, round and reactive pupils present, EOMs intact bilaterally and no scleral icterus PUPIL: Yes Equal, round and reactive pupils present Resp: COMMON NORMALS: normal respiratory effort and No retractions Cardio: COMMON NORMALS: regular rate, regular rhythm and No murmurs present (Cardio) RATE: regular rate RHYTHM: regular rhythm GI: COMMON NORMALS: Normal to inspection, nondistended, normoactive bowel sounds present, Soft to palpation and non-tender PALPATION: Yes Soft to palpation Neuro: COMMON NORMALS: patient oriented x3 SENSORIUM/ORIENTATION: Yes alert Skin: COMMON NORMALS: no rashes or lesions noted GENERAL SKIN EXAM: no rashes or lesions noted Course Vital Signs: Vital signs: Vital Signs Temperature 98.0 F 01/16/25 14:16 Pulse Rate 95 01/16/25 18:00 Respiratory Rate 16 01/16/25 14:16 Blood Pressure 95/58 01/16/25 18:00 Pulse Oximetry 96 01/16/25 18:00 Oxygen Delivery Me thod Room Air 01/16/25 14:16 MDM - Weakness Lab Data 01/16/25 15:05 01/16/25 15:05 Laboratory Results WBC 6.12 10^3/uL (3.29-11.43) 01/16/25 15:05 RBC 2.90 10^6/uL (3.85-5.65) L 01/16/25 15:05 Hgb 10.70 g/dL (11.27-16.99) L 01/16/25 15:05 Hct 31.4 % (36-47) L 01/16/25 15:05 MCV 108.3 fl (85-98) H 01/16/25 15:05 MCH 36.9 pg (27-33) H 01/16/25 15:05 MCHC 34.1 g/dL (30-55) 01/16/25 15:05 RDW 17.2 % (12.1-15.1) H 01/16/25 15:05 Plt Count 234 10^3/cmm (157-399) 01/16/25 15:05 MPV 11.2 fL (7.4-10.4) H 01/16/25 15:05 Neut % (Auto) 54.7 % 01/16/25 15:05 Lymph % (Auto) 35.6 % 01/16/25 15:05 [place] % (Auto) 5.9 % 01/16/25 15:05 Eos % (Auto) 2.5 % 01/16/25 15:05 Baso % (Auto) 1.1 % 01/16/25 15:05 Neut # (Auto) 3.35 10^3/uL (1.8-7.7) 01/16/25 15:05 Lymph # (Auto) 2.2 10^3/uL (0.8-4.8) 01/16/25 15:05 [place] # (Auto) 0.4 10^3/uL (0.2-0.9) 01/16/25 15:05 Eos # (Auto) 0.2 10^3/uL (0.0-0.8) 01/16/25 15:05 Baso # (Auto) 0.1 10^3/uL (0.0-0.1) 01/16/25 15:05 Nucleated RBC % (auto) 0 % 01/16/25 15:05 Nucleated RBCs # 0.0 /100WBC 01/16/25 15:05 Sodium 140 mmol/L (136-145) 01/16/25 15:05 Potassium 3.6 mmol/L (3.5-5.1) 01/16/25 15:05 Chloride 109 mmol/L (98-107) H 01/16/25 15:05 Carbon Dioxide 20 mmol/L (22-29) L 01/16/25 15:05 Anion Gap 14.6 (5-19) 01/16/25 15:05 BUN 9 mg/dL (6-20) 01/16/25 15:05 Creatinine 0.8 mg/dL (0.5-0.9) 01/16/25 15:05 GFR Calculation 78.3 mL/min (90-130) L 01/16/25 15:05 Glucose 111 mg/dL (65-115) 01/16/25 15:05 Calculated Osmolality 289 mOsm/kg (285-295) 01/16/25 15:05 Calcium 8.2 mg/dL (8.5-10.5) L 01/16/25 15:05 Total Bilirubin 0.2 mg/dL (0.15-1.2) 01/16/25 15:05 AST 14 U/L (0-32) 01/16/25 15:05 ALT 6 U/L (0-33) 01/16/25 15:05 Alkaline Phosphatase 82 U/L (35-105) 01/16/25 15:05 Total Protein 6.8 g/dL (6.6-8.7) 01/16/25 15:05 Albumin 4.1 g/dL (3.5-5.2) 01/16/25 15:05 Globulin 2.7 g/dL (1.3-4.6) 01/16/25 15:05 Lipase 28 U/L (13-60) 01/16/25 15:05 Urine Color Yellow (Yellow) 01/16/25 17:35 Urine Appearance Cloudy (CLEAR) A 01/16/25 17:35 Urine pH 6.5 (5-7) 01/16/25 17:35 Ur Specific [place] 1.012 (1.005-1.030) 01/16/25 17:35 Urine Protein 1+ (Negative) A 01/16/25 17:35 Urine Glucose (UA) Negative (Normal) 01/16/25 17:35 Urine Ketones Negative (Negative) 01/16/25 17:35 Urine Blood Negative (Negative) 01/16/25 17:35 Urine Nitrate Positive (Negative) A 01/16/25 17:35 Urine Bilirubin Negative (Negative) 01/16/25 17:35 Urine Urobilinogen 1.0 mg/dL (Negative) 01/16/25 17:35 Ur Leukocyte Esterase Negative (Negative) 01/16/25 17:35 Urine RBC 0-4 /hpf (0-2) H 01/16/25 17:35 Urine WBC 5-10 /hpf (0-5) H 01/16/25 17:35 Ur Squamous Epith Cells 5-10 /hpf (0-5) H 01/16/25 17:35 Amorphous Sediment Not Reportable 01/16/25 17:35 Urine Bacteria 3+ /hpf (NONE) H 01/16/25 17:35 Urine Mucus Trace /hpf 01/16/25 17:35 Discharge Plan Discharge Condition: Stable Prescriptions: No Action docosanol [Abreva] 10 % cream topical ibuprofen [IBU] 800 mg tablet 800 mg PO TID alprazolam [Xanax] 1 mg tablet 1 mg PO BID PRN buprenorphine-naloxone [Suboxone] 2-0.5 mg film 1 film buccal TID Rx Instructions: place 1 strip/tab under (each) side of tongue omeprazole 20 mg capsule,delayed release(DR/EC) 20 mg PO DAILY albuterol sulfate [ProAir HFA] 90 mcg/actuation HFA aerosol inhaler 2 puff inhalation Q6H PRN (Reason: wheezing) Qty: 8.5 2RF levofloxacin 750 mg tablet 750 mg PO DAILY Qty: 7 0RF benzonatate 100 mg capsule 100 mg PO TID PRN (Reason: cough) Qty: 30 0RF Referrals: Jewel Oneil MD [Primary Care Provider, Family Practice] Print Language: Kyrgyz Coding Level of Care Code ED [employer] for Emilee Palmer
[2025-01-16 20:27] LABS: NT Pro B Type Natriuretic Pept 102 pg/mL (0-125)
--- NOTE | 2025-01-16 20:35 | ECG_ITS ---
[facility]: [facility]16 Pat Name: Rosalia Avelar Department: Room: Gender: Female Rehab Rn: : 1980 Requested By: Michi Valerio Order Number: [id number] Reading MD: Measurements Intervals [place] Rate: 60 P: 24 OH: 156 QRS: 81 QRSD: 90 T: 68 QT: 412 QTc: 412 Interpretive Statements SINUS RHYTHM POSSIBLE RIGHT VENTRICULAR CONDUCTION DELAY [RSR (QR) IN V1/V2] [email or web address]
[2025-01-16 20:49] LABS: Troponin(5th) Baseline < 6 ng/L (0-10)
[2025-01-16] MEDS: nitrofurantoin SR (BID) 100 mg Capsule PO (21:40)
== END 2025-01-16 22:00 | disposition home or self-care (01) ==
PROVIDERS: Family Medicine; Emergency Provider Student in an Organized Health Care Education/Training Program; PCP Family Medicine
DX: R55 Syncope and collapse (principal); N39.0 Urinary tract infection, site not specified; F17.210 Nicotine dependence, cigarettes, uncomplicated
CPT/HCPCS: 36415; 80053; 81001; 83690; 83880; 84484; 85025; 87077; 87086; 87186; 93005; 96360; 99284; J7030; J9999

== ENCOUNTER → 2025-03-13 15:18 | Outpatient (BNVA) | payer OTHER, BC, MEDICAID, SELFPAY | PROVIDERS: PCP Family Medicine; Visit Provider Nurse Practitioner | DX: S46.912A Strain of unspecified muscle, fascia and tendon at shoulder and upper arm level, left arm, initial encounter (principal); X58.XXXA Exposure to other specified factors, initial encounter | CPT/HCPCS: 73030 ==